=== PATIENT | male | born 1995 | race Hispanic/Latino ===

== ENCOUNTER 2022-06-15 02:20 | Emergency (ER) | payer MEDICARE, MEDICAID, SELFPAY ==
[2022-06-15 02:43] VITALS: BP 149/72; PULSE 93; RESP 17; TEMP 36.5; O2SAT 98; BMI 45.4
--- NOTE | 2022-06-15 03:58 | ED_ITS ---
HPI - Eye Problem General Chief complaint: Eye Problems Stated complaint: RT. eye swollen/white Time Seen by Provider: 06/15/22 02:23 Source: patient Mode of arrival: Ambulatory History of Present Illness HPI Narrative: 27-year-old male smoker with history of bipolar presents with bilateral itching, dry and red eyes for the past few days. He states that he has been having some drainage and crusting from his right eye. He denies any injury or exposure to UV light, he does not wear contacts. He states it is symptoms have been present for the past few days and though they are not worsening they are certainly not getting better. He does have some pain in his right eye but denies any blurring of his vision. He has no headache, fever or chills. He states that he had been on Latuda for bipolar but went off it for many months and just restarted it. He states his symptoms started soon after Related Data Home Medications Medication Instructions Recorded Confirmed dextroamphetamine-amphetamine ER 10 mg PO QDAY ##0 03/24/12 10 mg 24hr capsule,extend release (Adderall XR) divalproex 250 mg tablet,delayed 0 DIRECTED ##0 03/24/12 release (Depakote) risperidone 1 mg tablet (Risperdal) 0 DIRECTED ##0 03/24/12 Allergies Allergy/AdvReac Type Severity Reaction Status Date / Time No Known Drug Allergies Allergy Verified 06/15/22 02:43 Review of Systems Review of Systems Narrative: GENERAL: Denies chills, fatigue, malaise, fever, sweats. HEENT: See HPI RESPIRATORY: Denies dyspnea, cough, wheezing, hemoptysis, sputum. CARDIOVASCULAR: Denies chest pain, palpitations, orthopnea, edema, GASTROINTESTINAL: Denies nausea, vomiting, abdominal pain, diarrhea, constipation, melena. : Denies dysuria, frequency, incontinence, hematuria, urinary retention. MUSCULOSKELETAL: denies weakness, joint pain, or bony pain SKIN: Denies rash, skin lesions, or other NEUROLOGIC: Denies weakness, headache, numbness, change in speech, confusion, seizures, incoordination. PSYCHIATRIC: No concerning psychosocial issues. 12 point review of systems is negative except for those stated above Patient History Social History Smoking Status: Current every day smoker Smoking Status: Current every day smoker tobacco type: vaping Substance Use Type: does not use Exam Narrative Exam Narrative: GENERAL: [27] year old patient appears stated age. Well-developed patient, in mild distress. HEAD: Atraumatic. Normocephalic. EYES: Pupils equal round and reactive. Extraocular motions intact. No scleral icterus. Scleral injection bilaterally, right eye with some matting and minimal exudate. Some improvement with proparacaine, no fluorescein uptake. Ocular pressures OS 16 mmHg, OD 15 mmHg ENT: Nose without bleeding, purulent drainage. Throat without erythema, tonsillar hypertrophy or exudate. Airway patent. NECK: Trachea midline. Non tender CARDIOVASCULAR: Regular rate and rhythm without murmurs, gallops, or rubs. RESPIRATORY: Clear to auscultation. Breath sounds equal bilaterally. No wheezes, rales, or rhonchi. GASTROINTESTINAL: Abdomen soft, non-tender, nondistended. EXTREMITIES: No edema or joint tenderness. BACK: Nontender without deformity or crepitance. No flank tenderness. NEURO: AOx3. SKIN: No rash or erythema of visible areas Initial Vital Signs Initial Vital Signs: Vital Signs Temperature 97.7 F 06/15/22 02:43 Pulse Rate 93 H 06/15/22 02:43 Respiratory Rate 17 06/15/22 02:43 Blood Pressure 149/72 H 06/15/22 02:43 Pulse Oximetry 98 06/15/22 02:43 Oxygen Delivery Method Room Air 06/15/22 02:43 Course Orders Ordered: Discontinued Medications Erythromycin (Erythromycin Ophth 1 Gm Oint) 1 applic EYE-BOTH NOW ONE Stop: 06/15/22 04:30 Fluorescein Sodium (Fluorescein 1 Mg Strip) 1 mg EYE-BOTH NOW ONE Stop: 06/15/22 04:07 Proparacaine HCl (Proparacaine 0.5% Ophth Katherine) 1 drops EYE-BOTH NOW ONE Stop: 06/15/22 04:07 Vital Signs Vital signs: Vital Signs - 8 hr 06/15/22 02:43 Temperature 97.7 F Pulse Rate 93 H Respiratory Rate 17 Blood Pressure 149/72 H Pulse Oximetry 98 Oxygen Delivery Method Room Air MDM - Eye Problem MDM Narrative Medical decision making narrative: [27-year-old male] presents with dry itching red eyes bilaterally Multiple etiologies for patient's symptoms considered including, but not limited to: [Conjunctivitis, reaction to Latuda, acute angle closure glaucoma versus other] Prior Charts reviewed in our EMR Primary Historian: patient Patient with normal intra-ocular pressures, responsive pupils, acute angle closure glaucoma unlikely. Patient's symptoms started soon after Latuda and could certainly be consistent with this finding. I have given the patient antibiotics as his right eye has matting and drainage which is likely consistent with conjunctivitis. Patient's symptoms improved over duration of stay with above-stated therapies. Findings and discharge diagnosis discussed with patient/family followed by verbalization of understanding Return precautions discussed with patient/family whom verbalize understanding of diagnosis and plan Discharge Plan Departure Patient Disposition: Home Clinical Impression: Corneal irritation of both eyes, Conjunctivitis Instructions: DI for Eye Pain Activity Restrictions/Additional Instructions: *You have been diagnosed with [bilateral eye irritation with right eye drainage likely due to conjunctivitis, as we discussed this could be related to your medications] *What to do: *Please continue to take your regular medications as directed. Please apply a 1 cm ribbon of the antibiotic ointment to each eye every 6 hours for the next 7 days or until you are able to follow-up with the eye doctors [ ] New medication prescriptions sent to your pharmacy: [ ] [ ] New medication written as a paper prescription [x ] No new medications given *Please follow up with your primary care provider in 2-3 days, call for an appointment. Let them know you were seen in the Emergency Department and that we ask that you be seen in follow up. We will electronically transmit a record of today's note if your PCP is in our system As we discussed, please follow-up with Dr. Ragsdale or Dr. Lopez at [facility] [facility], please call the office Thursday morning and let them know you were seen in the emergency department and we would like you seen in follow-up *If you do not have a primary care provider please contact the [facility] Resource line at [phone]. They will ask some questions about your medical history and help get you set up with a doctor in the community. *Return to Emergency Department if you should have any new, worsening or concerning symptoms, such as [fever greater than 101 F, shaking chills, worsening pain, persistent vomiting or other bothersome symptoms] Prescriptions: No Action dextroamphetamine-amphetamine [Adderall XR] 10 MG capsule,extended release 24hr 10 mg PO QDAY Qty: 0 risperidone [Risperdal] 1 MG tablet 0 DIRECTED Qty: 0 divalproex [Depakote] 250 MG tablet,delayed release (DR/EC) 0 DIRECTED Qty: 0 Referrals: Diego Ragsdale MD [Physician] - Stand Alone Forms: Patient Portal/API
[2022-06-15] MEDS: PROPARACAINE 0.5% OPHTH SOL 1 DROPS EYE-BOTH (04:37)
[2022-06-15] MEDS: ERYTHROMYCIN OPHTH 1 GM OINT 1 APPLIC EYE-BOTH (04:37)
[2022-06-15] MEDS: FLUORESCEIN 1 MG STRIP EYE-BOTH (04:37)
== END 2022-06-15 04:48 | disposition home or self-care (01) ==
PROVIDERS: Emergency Provider Emergency Medicine
DX: H10.9 Unspecified conjunctivitis (principal); H57.13 Ocular pain, bilateral
CPT/HCPCS: 99282